=== PATIENT | female | born 2000 | race Caucasian/White ===

== ENCOUNTER 2021-04-25 05:30 | Day surgery (SDC) | payer OTHER ==
[~2021-04-25] VITALS: Ht 177.8 cm; Wt 70.7 kg
[2021-04-25 06:47] VITALS: BP 117/76
== END 2021-04-25 11:05 | disposition home or self-care (01) ==
LOC: OUT 05:30
PROVIDERS: ATTEND Orthopaedic Surgery
DX: S52.392A Other fracture of shaft of radius, left arm, initial encounter for closed fracture (principal); S66.191A Other injury of flexor muscle, fascia and tendon of left index finger at wrist and hand level, initial encounter; S66.193A Other injury of flexor muscle, fascia and tendon of left middle finger at wrist and hand level, initial encounter; Z20.822 Contact with and (suspected) exposure to COVID-19; Z79.899 Other long term (current) drug therapy; X58.XXXA Exposure to other specified factors, initial encounter; Y93.89 Activity, other specified; Y92.89 Other specified places as the place of occurrence of the external cause; Y99.8 Other external cause status
CPT/HCPCS: 25515; 26350; 73090; 81025; 87635; C1713; C1762; J0171; J2250; J2704; J3010; J3360; J7120